=== PATIENT | male | born 1940 | race Caucasian/White ===

== ENCOUNTER → 2019-04-26 | Day surgery (SDC) | payer MEDICARE ==
[~2019-04-26] MED LIST: BUPIVACAINE HCL 0.5 % INJ/PF 30 ML SDV INJ PRN; BUPIVACAINE HCL 0.5 % INJ/PF 30 ML SDV ONE; LIDOCAINE 2% INJ-PF (20 MG/ML) 10 ML AMPUL INJ PRN; LIDOCAINE 2% INJ-PF (20 MG/ML) 10 ML AMPUL ONE; TRIAMCINOLONE ACETONIDE INJ 40 MG/1 ML VIAL INJ PRN
--- NOTE | 2019-04-26 09:09 | Operative Report ---
Operative Report DATE OF SURGERY: 04/26/19 PREOPERATIVE DIAGNOSIS: Left hip primary osteoarthritis POSTOPERATIVE DIAGNOSIS: Left hip primary osteoarthritis OPERATION: Left fluoroscopic hip injection SURGEON: MAURICIO ORTEGA JR ANESTHESIA: Local COMPLICATIONS: None ESTIMATED BLOOD LOSS: None PROCEDURE: Patient was placed supine on the fluoroscopic table. A timeout was performed verifying site and procedure. Using sterile technique 3 cc of 1% lidocaine was injected into the left hip injection site. After adequate analgesia a spinal needle was placed with fluoroscopic guidance down to the level of the hip joint. Contrast dye was injected to the hip that confirmed appropriate placement of the spinal needle. After this the dye syringe was removed and the medication syringe consisting of 1% lidocaine x1 cc, half percent Marcaine x1 cc, 40 mg of triamcinolone were injected into the left hip. A sterile dressing was placed. Patient tolerated procedure well and was brought off of the fluoroscopy table in stable condition and was discharged.
--- NOTE | 2019-04-26 13:26 | RADIOLOGY REPORT (SQ) ---
EXAM DESCRIPTION: STEROID JT INJECT/HIP/KNEE/SHL COMPLETED DATE/TIME: 04/26/2019 9:33 am REASON FOR STUDY: M16.12 LEFT HIP STEROID INJECTION M16.12 UNILATERAL PRIMARY OSTEOARTHRITIS, LEFT HIP COMPARISON: None. FLUOROSCOPY TIME: 0.1 minutes 2 digital fluoroscopic intra procedural images saved to PACS. TECHNIQUE: Intra-operative images acquired during surgical procedure to evaluate progress. NUMBER OF IMAGES: 2 digital fluoroscopic intra procedural images LIMITATIONS: None. FINDINGS: Imaging and fluoro during joint injection performed by the orthopedic surgeon IMPRESSION: IMAGE(S) OBTAINED DURING PROCEDURE. COMMENT: Quality ID [id number]: Final reports for procedures using fluoroscopy that document radiation exp osure indices, or exposure time and number of fluorographic images (if radiation exposure indices are not available) Please consult full operative report of the attending physician for description of the procedure. TECHNICAL DOCUMENTATION: JOB ID: [id number]- All Rights Reserved Reading location - IP/workstation name: [email or web address]
== END ==
LOC: CCL 08:03
PROVIDERS: ATTEND Orthopaedic Surgery
DX: M16.12 Unilateral primary osteoarthritis, left hip (principal)
CPT/HCPCS: 20610; 77002; Q9967; J3490 ×2; J3301